=== PATIENT | female | born 1995 | race Two or more races ===

== ENCOUNTER 2019-08-23 09:00 | Emergency (ER) | payer SELFPAY ==
[~2019-08-23] VITALS: Ht 170.2 cm; Wt 68.0 kg
[2019-08-23 09:09] VITALS: BP 120/82
[2019-08-23] MEDS ORDERED: IBUPROFEN 800 MG TAB PO ONE (10:00)
== END 2019-08-23 10:20 | disposition home or self-care (01) ==
LOC: ER 09:00
DX: F19.230 Other psychoactive substance dependence with withdrawal, uncomplicated (principal); F32.9 Major depressive disorder, single episode, unspecified